=== PATIENT | female | born 2000 | race African-American/Black ===

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

== ENCOUNTER 2022-11-23 14:14 | Emergency (ER) | payer MEDICAID ==
[~2022-11-23] VITALS: Ht 172.7 cm; Wt 82.0 kg
[~2022-11-23 14:14] MED LIST changes: +DOXY100C5 MT; +METR500T MT
[2022-11-23 14:21] VITALS: O2SAT 100
[2022-11-23 15:22] LABS: CLARITY URINE CLOUDY (CLEAR); COLOR URINE YELLOW (YELLOW); GLUCOSE URINE NEGATIVE (NEGATIVE); KETONES URINE NEGATIVE (NEGATIVE); LEUKOCYTE ESTERASE URINE 3+ (NEGATIVE); NITRITE URINE NEGATIVE (NEGATIVE); OCCULT BLOOD URINE NEGATIVE (NEGATIVE); PH URINE 7.5 (4.5-8.0); PROTEIN URINE NEGATIVE (NEGATIVE); SPECIFIC GRAVITY URINE 1.017 (1.005-1.030)
[2022-11-23 15:31] LABS: HCG SCREEN NEGATIVE
[2022-11-23] MEDS ORDERED: DOXYCYCLINE HYCLATE 100MG CAPSULE PO NR (15:45)
[2022-11-23] MEDS ORDERED: CEFTRIAXONE SODIUM 500 MG/VIAL IM NR (15:45)
[2022-11-23] MEDS ORDERED: DOXY100C5 MT (16:08)
[2022-11-23] MEDS ORDERED: METR-167 MT (16:08)
[2022-11-23] MEDS ORDERED: DIF15 MT ×3 (16:08→16:46)
[2022-11-23 16:17] LABS: BACTERIA URINE 2+; RBC URINE 0-2 /hpf (0-2); SQUAMOUS EPITHELIAL CELL URINE 2+ /lpf (RARE/1+); YEAST URINE RARE
[2022-11-23 17:01] VITALS: BP 134/58; PULSE 84; RESP 16; TEMP 98.8
[2022-11-25 06:08] LABS: HIV SCREEN 4G Non Reactive (Non Reactive)
[2022-11-26 04:08] LABS: CHLAMYDIA TRACHOMATIS NAA Negative (Negative); NEISSERIA GONORRHOEAE NAA Negative (Negative)
== END 2022-11-23 17:02 | disposition home or self-care (01) ==
LOC: ER 14:24
DX: N89.8 Other specified noninflammatory disorders of vagina (principal); Z20.2 Contact with and (suspected) exposure to infections with a predominantly sexual mode of transmission
CPT/HCPCS: 87491; 87591; 81003; 81025; 84703; 86592; 87210; 87389; 96372; 99284; J0696; Z7610 ×2

== ENCOUNTER 2024-10-11 00:47 | Emergency (ER) | payer MEDICAID, OTHER ==
[~2024-10-11] VITALS: Ht 165.1 cm; Wt 81.6 kg
[~2024-10-11 00:47] MED LIST changes: +DIF15 MT; +METR-167 MT
[2024-10-11 00:51] VITALS: BP 110/56; PULSE 110; RESP 18; TEMP 36.7; O2SAT 99
== END 2024-10-11 01:08 | disposition left against medical advice (07) ==
LOC: ER 00:54
DX: F10.129 Alcohol abuse with intoxication, unspecified (principal); R30.0 Dysuria; Y90.9 Presence of alcohol in blood, level not specified
CPT/HCPCS: 99283